=== PATIENT | male | born 1970 | race Caucasian/White ===

== ENCOUNTER → 2018-01-10 | Outpatient (CLI) | payer BC ==
--- NOTE | 2018-01-10 18:29 | CONS ---
CONSULTATION DATE OF SERVICE: 01/10/2018 47-year-old gentleman has been [facility] for obstructive sleep apnea- hypopnea syndrome. The patient is known to our office for many years for obstructive sleep apnea. Last CPAP titration done in 2011. The patient is on treatment with CPAP with a pressure at 8 cm of water. SLEEP SCHEDULE: His usual sleep schedule from around 9 to 10 pm until 3:00 a.m. basically around 7 days a wake and he sleeps pretty well with the machine with very occasional snoring. The patient may wake up from sleep once without nocturia. At the same time he sometimes feels sleepy during the day. [place] Sleepiness Scale significantly increased to 14. He increased his weight since the last titration from 260 pounds up to 269 pounds at the present time. PAST MEDICAL HISTORY: 1. Positive for hypertension. 2. Right shoulder pain. PAST SURGICAL HISTORY: Right knee arthroscopic surgery, UPPP, tonsillectomy and surgery for nasal septum deviation 2010. MEDICATIONS: Lisinopril, naproxen. SOCIAL HISTORY: Negative for smoking. Alcohol consumption occasional. FAMILY HISTORY: Heart problems in the family. REVIEW OF SYSTEMS: Occasional awakenings from sleep, sleepiness during the day. PHYSICAL EXAM: gentleman without distress. BP 127/69, HR 87, RR 16, height 5 feet 10 inches and 1/4, weight 269.4, BMI 38.3, temperature 98, oxygen saturation on room air 96%. Oropharynx: Moderately low position of soft palate. No uvula. ABDOMEN: Obese. HEENT PERRLA, EOMI. Neck Supple, no JVD. Thyroid is not palpable. LUNGS Clear to percussion and to auscultation. Good air exchange. No wheezing or rhonchi. HEART S1, S2 regular. No murmurs, gallops, or rubs. ABDOMEN Soft and nontender. Bowel sounds are present. No organomegaly appreciated. EXTREMITIES No clubbing or cyanosis. 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 Cranial nerves 2 to 7 intact. There is no fasciculation or atrophy noted. No focal deficits observed. I checked patient's CPAP unit. CPAP pressure is 8 cm of water. Usage is 25/30 nights for more than 4 hours. No information about apnea-hypopnea index on the machine. CPAP unit is old with some problem with a heated humidifier. IMPRESSION: 1. Obstructive sleep apnea-hypopnea syndrome for many years. Patient continued to use his CPAP equipment practically every night. Occasional mild snoring with the machine. 2. Obesity BMI 38.33. 3. Hypertension. 4. Right shoulder problems. 5. Status post right knee arthroscopic surgery. 6. Status post Uvulopalatopharyngoplasty with tonsillectomy and surgery for nasal septum deviation in 2010. PLAN: 1. We will replace CPAP unit to the new one with automatic regimen of the pressure 6- 12. 2. I will see patient for followup visit in 1 month after he will get his new machine to evaluate his clinical response to treatment compliance with treatment and make any necessary adjustments. 3. Losing weight. 4. Prescription for all necessary CPAP supplies. 5. No driving if feeling any sleepiness. Thank you very much for allowing me to participate in management of your patient. Sincerely, Lico Ly MD, PhD, FAASM Diplomat of [employer] Loan Specialist of [facility] [place] MMODL / LULUN: [id number] /
== END | disposition home or self-care (01) ==
LOC: SLEEP 14:54
PROVIDERS: ATTEND Internal Medicine
DX: G47.33 Obstructive sleep apnea (adult) (pediatric) (principal); E66.9 Obesity, unspecified; M79.9 Soft tissue disorder, unspecified; I10 Essential (primary) hypertension; Z98.890 Other specified postprocedural states; Z68.38 Body mass index [BMI] 38.0-38.9, adult; Z99.89 Dependence on other enabling machines and devices

== ENCOUNTER → 2018-04-04 | Outpatient (CLI) | payer BC ==
--- NOTE | 2018-04-04 17:13 | PN ---
PROGRESS NOTE DATE OF SERVICE: 04/04/2018 48-year-old gentleman who has been followed in [facility] for treatment of obstructive sleep apnea-hypopnea syndrome. Recently patient's CPAP unit had been replaced with a new one, and today this is first visit after he received his new unit. He is able to use equipment every night for the whole night. He likes new machine. He thinks that it works much better than the previous machine. He sleeps well with that and feels well during the day. [place] Sleepiness Scale today is 10. I checked CPAP unit pressure in the range 5 to 12. Average pressure 8.7 cm of water. Apnea-hypopnea index reading only 0.9, which is absolutely perfect. Usage is 100% of the time more than 4 hours. Average usage 4.9 hours. Leak is 11 L/minute which is normal. MEDICATIONS: Lisinopril, naproxen. PHYSICAL EXAM: Patient in no distress. BP 149/79, HR 80, RR 16, weight 263.4, temp 97.8, oxygen saturation on room air 97%. Oropharynx moderately low position of soft palate. No uvula. ABDOMEN: Obese. Neck Supple, no JVD. Thyroid is not palpable. LUNGS Clear to percussion and to auscultation. Good air exchange. No wheezing or rhonchi. HEART S1, S2 regular. No murmurs, gallops, or rubs. ABDOMEN: Obese. Soft and nontender. Bowel sounds are present. No organomegaly appreciated. EXTREMITIES No clubbing or cyanosis. 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 Cranial nerves 2 to 7 intact. There is no fasciculation or atrophy. noted. No focal deficits observed. IMPRESSION: 1. Obstructive sleep apnea-hypopnea syndrome. The patient demonstrated 100% compliance with treatment benefitting with treatment. 2. Obesity. 3. Hypertension. 4. History of right shoulder problems. 5. Status post right knee arthroscopic surgery. 6. Status post Uvulopalatopharyngoplasty with tonsillectomy and surgery for nasal septum deviation 2010. PLAN: 1. Patient will continue to use CPAP equipment every night for the whole night. 2. Losing weight. 3. Sleep hygiene with regular time in bed for at least 8 hours. 4. No driving if feeling sleepiness. 5. We will follow with prescription for all necessary CPAP supplies including mask, tube, filters. 6. I discussed with the patient necessity to dry humidifier and tube in the morning after using it at night. 7. Followup visit in 10 months or earlier if patient has any problems. Thank you very much for allowing me to participate in the management of your patient. Sincerely, Lico Ly MD, PhD, FAASM Diplomat of [employer] Electromedical Equipment Repairer of [facility] [place] MMODL / LULUN: [id number] /
== END | disposition home or self-care (01) ==
LOC: SLEEP 14:03
PROVIDERS: ATTEND Internal Medicine
DX: G47.33 Obstructive sleep apnea (adult) (pediatric) (principal); E66.9 Obesity, unspecified; I10 Essential (primary) hypertension; Z98.890 Other specified postprocedural states; Z90.89 Acquired absence of other organs; Z79.899 Other long term (current) drug therapy; Z99.89 Dependence on other enabling machines and devices

== ENCOUNTER → 2018-12-13 | Outpatient (CLI) | payer BC ==
[2018-12-13 14:50] LABS: HCT 49.9 % (39.0-53.0); HGB 16.9 gm/dL (13.0-17.5); MCH 30.4 pg (25.0-35.0); MCHC 33.8 g/dL (31.0-37.0); MCV 89.9 fL (80.0-100.0); Mean Platelet Volume 6.9; Platelet Count 195 k/uL (150-450); RBC 5.54 m/uL (4.30-5.90); RDW 12.9 % (11.5-15.5); WBC 7.9 k/uL (3.8-10.6)
[2018-12-13 15:02] LABS: ALT 44 U/L (21-72); AST 27 U/L (17-59); Albumin 3.8 g/dL (3.5-5.0); Alkaline Phosphatase 130 U/L (38-126); Anion Gap 5 mmol/L; Blood Urea Nitrogen 21 mg/dL (9-20); Calcium 9.2 mg/dL (8.4-10.2); Carbon Dioxide 31 mmol/L (22-30); Chloride 104 mmol/L (98-107); Glucose 99 mg/dL (74-99); Potassium 4.2 mmol/L (3.5-5.1); Sodium 140 mmol/L (137-145); Total Bilirubin 0.4 mg/dL (0.2-1.3)
[2018-12-13 15:11] LABS: INR 0.9 (<1.2); Partial Thromboplastin Time 23.8 sec (22.0-30.0); Prothrombin Time 9.6 sec (9.0-12.0)
== END | disposition home or self-care (01) ==
LOC: LABPAT 13:45
PROVIDERS: ATTEND Orthopaedic Surgery
DX: Z01.812 Encounter for preprocedural laboratory examination (principal)
CPT/HCPCS: 80053; 85027; 85610; 85730

== ENCOUNTER 2018-12-31 09:15 | Inpatient (IN) | payer BC ==
[2018-12-25 11:40] VITALS: BMI 36.6
[~2018-12-31 09:15] MED LIST: ACETAMINOPHEN TAB 500 MG TAB PO ONE; DEXAMETHASONE SOD PHOSPHATE 10 MG/ML 1 ML VIAL IV ONE; HYDROmorphone 0.5 MG/0.5 ML SYRINGE IVP PRN; LIDOCAINE 1% 20 ML VIAL (10MG/ML) FOR IV START INTRADERMA PRN; MELOXICAM 7.5 MG TAB PO ONE; MIDAZOLAM 2 MG/2 ML VIAL IV PRN; ONDANSETRON 4 MG/2 ML VIAL IVP ONE; ROPIVACAINE 246.25 MG, EPINEPHrine 0.5 MG, KETOROLAC 30 MG, WATER FOR INJECTION,STERILE... MISCELLANE ONE; SCOPOLAMINE 1.5MG/72HR PATCH TRANSDERM ONE; TRANEXAMIC ACID 1,000 MG in SODIUM CHLORIDE 0.9% 100 ML IVPB ONE; ceFAZolin IN SWFI 2 GM/20 ML SYRINGE IVP ONE
[2018-12-31] MEDS: LACTATED RINGERS 1,000 ML IV SCH (13:43)
[2018-12-31] MEDS ORDERED: MIDAZOLAM (PF) 2 MG/2 ML VIAL IV ONE (13:49)
[2018-12-31] MEDS ORDERED: BISACODYL 10 MG SUPP RECTAL PRN (14:43)
[2018-12-31] MEDS ORDERED: NA PHOS,M-B/NA PHOS,DI-BA 133 ML ENEMA RECTAL PRN (14:43)
[2018-12-31] MEDS ORDERED: HYDROcodone/APAP 5-325MG 1 EACH TAB PO PRN ×2 (14:43)
[2018-12-31] MEDS ORDERED: HYDROmorphone 1 MG/ML 1 ML SYRINGE IVP PRN (14:43)
[2018-12-31] MEDS ORDERED: ONDANSETRON 4 MG/2 ML VIAL IVP PRN (14:43)
[2018-12-31] MEDS ORDERED: ROPIVACAINE 1,100 MG, SODIUM CHLORIDE 0.9% 500 ML 330 ML MISCELLANE PRN ×2 (14:43)
[2018-12-31] MEDS ORDERED: MAGNESIUM HYDROXIDE 2,400 MG/10 ML CUP PO PRN (14:43)
[2018-12-31] MEDS ORDERED: HYDROmorphone 0.5 MG/0.5 ML SYRINGE IVP PRN ×2 (14:43)
[2018-12-31] MEDS ORDERED: NALOXONE 0.4 MG/ML 1 ML VIAL IV PRN (14:43)
[2018-12-31] MEDS ORDERED: hydrOXYzine PAMOATE 25 MG CAP PO PRN (14:43)
--- NOTE | 2018-12-31 14:46 | P.ONQ ---
Anesthesiology Proc Note - PNB - Peripheral Nerve Block Performed Right Adductor Canal Infusion Time Out Performed: Yes Procedure Start Time: 13:51 Procedure Stop Time: 13:59 Indication: Acute Post-Operative Pain, Requested by physician Sedation Type: Sedate with meaningful contact maintained Preparation: Sterile Dressing Position: Supine Catheter: Indwelling Needle Types: On-Q Needle Size: 100mm (4") Needle Gauge: 21 Technique: Ultrasound (ropi .5% 20cc) Blood Aspirated: No Pain Paresthesia on Injection Noted: No Resistance on Injection: Normal Events: Uneventful and Well Tolerated
[2018-12-31] MEDS ORDERED: MIDAZOLAM 2 MG/2 ML VIAL ONE (15:07)
[2018-12-31] MEDS ORDERED: TRANEXAMIC ACID 1,000 MG/10 ML VIAL ONE (15:07)
[2018-12-31] MEDS ORDERED: SODIUM CHLORIDE 0.9% 100 ML BAG ONE (15:07)
[2018-12-31] MEDS ORDERED: fentaNYL (PF) 50 MCG/ML 2 ML AMP ONE (15:07)
[2018-12-31] MEDS ORDERED: ceFAZolin 3,000 MG in SODIUM CHLORIDE 0.9% IRRIGATIO 3,000 ML IRRIGATION ONE (15:09)
[2018-12-31] MEDS ORDERED: LACTATED RINGERS 1,000 ML IV ONE (16:00)
--- NOTE | 2018-12-31 16:49 | P.OP ---
Date of Procedure: 12/31/18 Preoperative Diagnosis: Severe osteoarthritis right knee Postoperative Diagnosis: Severe osteoarthritis right knee Procedure(s) Performed: Right total knee arthroplasty Implants: Singh and Nephew Journey II CR Oxinium cruciate retaining femoral component size 8, right Singh & Nephew Journey right nonporous tibial baseplate size 7 Singh & Nephew Journey II, XLPE Deep Dished articular insert, size 10 mm, Size 7-8 right Singh & Nephew Journey BCS resurfacing oval patellar component, 32 mm All components were cemented using Palacos R bone cement.. The articulation is Oxinium on polyethylene. Anesthesia: spinal Surgeon: Guero Kennedy Plate Inspector #1: Sanjuana Flores Estimated Blood Loss (ml): 50 Pathology: other (Bone and cartilage) Condition: stable Disposition: PACU Indications for Procedure: After failure of conservative treatment we discussed the surgical and nonsurgical treatment options at length. Patient wishes to proceed with a total knee arthroplasty. Complications specific to this procedure were discussed at length, including but not limited to infection, bleeding, stiffness, and nerve injury. Patient is aware of all these complications and informed consent was obtained Operative Findings: The operative findings are consistent with severe osteoarthritis of the right knee Description of Procedure: Patient was seen in the preoperative area consent was reviewed and operative site was marked with a skin marker. An adductor canal pain catheter was placed by anesthesia in the preoperative area. Patient was then brought to the opera ting room and given preoperative antibiotics intravenously. A spinal anesthetic was administered by the anesthesia department. A tourniquet was placed on the upper thigh and the lower extremity was prepped and draped in usual sterile fashion. A gram of transexamic acid was given. A universal timeout was then performed which confirmed the patient's name, surgical site, ALLERGIES, and consent. The lower extremity was then exsanguinated and tourniquet was inflated to 250 mmHg. A standard and anterior midline approach to the knee was performed. The skin and subcutaneous tissue was dissected down to the patellar tendon. A medial parapatellar arthrotomy was then performed. The knee was then extended, the patellar was everted, and the knee was again flexed. Anterior horns of both menisci were excised, and a release was performed to the posterior medial aspect of the knee. On gross visual inspection, there was complete loss of articular cartilage in the medial and patellofemoral joint spaces. There was also significant cartilage damage in the lateral compartment. There were multiple periarticular osteophytes which were then removed with a Ronguer. The femoral canal was then opened with the appropriate drill, and the intramedullary femoral cutting guide was then placed and set for 5 of valgus. The distal femoral cutting block was then pinned in place, and the distal femur was then cut. The cutting block was then removed and the cut was checked for flatness. Next, the sizing guide was then placed and set for 3 external rotation based off of the epicondylar axis and Whitesides line. After the femur was sized, the appropriate 4-in-1 cutting block was then pinned in place. The anterior condyles were cut without notching. The posterior and chamfer cuts were perfo rmed while protecting the collateral ligaments. The cutting block was then removed, and the femoral canal was plugged with autologous bone. Attention was then directed to the tibia. The remaining ACL was removed with a Ronguer, and the tibia was then gently subluxed forward with a large bent knee retractor. Any remaining menisci was excised. The posterior lateral corner was cauterized in order to cauterize the lateral geniculate artery. The extra medullary tibial cutting guide was then placed, set for the appropriate rotation, slope, and depth of resection. The proximal tibia cutting guide was then pinned in place. Proximal tibia was then cut and sized. Next trials were then placed with the appropriate-sized insert. The knee was able to fully extend and flex to 130 and was stable throughout all range of motion. The knee was then extended, patella everted. Patella was then measured, and then using an osteotomy guide, the patella was cut at the appropriate level. The patella was then measured and drilled and the patella trial was then placed. The knee was then taken through range of motion with the patella trial and the patella tracked normally. The knee was then extended patella trial was then removed and the patella was everted. Knee was then flexed and lug holes were drilled through the femoral trial and the femoral trial was then removed. The tibial was then exposed, and the tibial broach guide was then pinned in place after it was set for the appropriate rotation to allow for the most coverage without overhang. The tibia was then reamed and broached. The cut surfaces of bone were then irrigated with pulsatile lavage. The posterior structures were injected with the ropivacaine solution. The knee was also irrigated with Irrisept solution. The components were then opened, the cement was mixed, and the components were then cemented in place. The cement was allowed to harden with the knee in full extension. While the cement was hardening, the remaining soft tissues were then injected with a ropivacaine solution, which consisted of 246.25 mg of ropivacaine, 0.5 mg of epinephrine, 30 mg of Toradol, 80 g of clonidine, and 48.45 mL of sterile water, for a total of 100 mL of fluid injected. After the cemented hardened. The tourniquet was released, and hemostasis was obtained. A second gram of transexamic acid was given. The knee was again irrigated. The knee was again taken through range of motion and found to be stable throughout all range of motion of 0-130, and the patella tracked normally. The fascia was then closed with #2 strata fix suture. The subcutaneous tissue was closed with 3-0 Vicryl and 3-0 strata fix. Dermabond glue was used for the skin and placed with the knee in flexion. The patient was placed in a sterile silver dressing. Patient was then transferred to recovery room in stable condition. The assistant golf course superintendent GLADYS Maharaj was required due the complexity surgery and the need for a skilled surgical scheduler. She assisted in positioning, draping, retraction, and closure of the wound.
--- NOTE | 2018-12-31 17:48 | XR ---
EXAMINATION TYPE: XR knee limited RT DATE OF EXAM: 12/31/2018 COMPARISON: NONE HISTORY: Postop knee surgery TECHNIQUE: 2 views FINDINGS: There is right knee prosthesis. Components are in anatomic position. IMPRESSION: No complicating process seen.
[2018-12-31] MEDS: SODIUM CHLORIDE 0.9% 1,000 ML IV SCH (18:21)
--- NOTE | 2018-12-31 19:50 | P.CONS ---
History of Present Illness - Reason for Consult Consult date: 12/31/18 Medical management Requesting physician: Guero Kennedy - Chief Complaint Post right total knee arthroplasty, hypertension, hyperlipidemia, obstructi - History of Present Illness 48-year-old male morbidly obese with past medical history of hypertension hyperlipidemia and obstructive sleep apnea who seen Dr. Boogie for the last few years had injury on his right knee from football back in school years ago developed to have severe arthritis of both knees worse on the right than the left side was doing Synvix injection for the last few years his arthritis become much worse was seen Dr. Kennedy and decided on total knee arthroplasty. Surgery was done today successfully patient was admitted to the floor afterward his hemodynamically stable and doing well. Review of Systems CONSTITUTIONAL: Well-developed no acute respiratory distress. Morbidly obese EYES: No icterus sclerae, no conjunctivitis. EARS, NOSE, MOUTH, THROAT, and FACE: No sore throat, lymphadenopathy, carotid bruits or deformity. RESPIRATORY: No SOB cough or wheezes. CARDIOVASCULAR: No CP, Palpitation, PND, Orthopnea, or angina. GASTROINTESTINAL: No Abd pain, Nausea or vomiting, no Diarrhea or constipation, No GI Bleed, no distention or masses. GENITOURINARY: Negative for Hematuria or UTI, no kidney stones. INTEGUMENT/BREAST: Negative for any muscular injury with mild osteoarthritis.. HEMATOLOGIC/LYMPHATIC: Negative for bleed or purpura. MUSCULOSKELTAL: Negative for Myalgia or arthralgia. Incision on the right knee with no hematoma. NEURLOGICAL: No LOC, Sz or syncope, blurred vision dizziness or abnormality.. BEHAVIORAL/PSYCH: Negative. ENDOCRINE: Negative. Past Medical History Past Medical History: Hyperlipidemia, Hypertension, Osteoarthritis (OA), Sleep Apnea/CPAP/BIPAP Additional Past Medical History / Comment(s): C PAP , VARICOSE VEINS History of Any Multi-Drug Resistant Organisms: None Reported Past Surgical History: Adenoidectomy, Tonsillectomy Additional Past Surgical History / Comment(s): LASIK BILATERAL EYES, VARICOSE VEIN SURGERY, Past Anesthesia/Blood Transfusion Reactions: Motion Sickness Smoking Status: Never smoker - Past Family History Mother Family Medical History: No Reported History Medications and Allergies Home Medications Medication Instructions Recorded Confirmed Type Acetaminophen Tab [Tylenol Tab] 650 mg PO Q4H PRN 12/25/18 12/31/18 History Lisinopril 20 mg PO HS@1800 12/25/18 12/31/18 History Fenofibrate Nanocrystallized 145 mg PO HS 12/30/18 12/31/18 History [Fenofibrate] Allergies Allergy/AdvReac Type Severity Reaction Status Date / Time No Known Allergies Allergy Verified 12/31/18 17:52 Physical Exam Vitals: Vital Signs Temp Pulse Pulse Resp BP BP Pulse Ox 12/31/18 19:44 97.6 F 86 17 122/79 97 12/31/18 18:39 97 12/31/18 18:30 90 126/80 12/31/18 18:15 88 119/74 12/31/18 18:00 97.8 F 82 12 115/71 96 12/31/18 17:35 80 16 123/65 92 L 12/31/18 17:20 84 18 120/63 91 L 12/31/18 17:05 98.1 F 86 20 127/64 95 12/31/18 14:03 81 16 132/86 96 12/31/18 13:22 97.6 F 88 16 155/83 96 Intake and Output 12/31/18 12/31/18 12/31/18 06:59 14:59 22:59 Intake Total 400 1001 Output Total 50 Balance 400 951 Intake: IV 400 1001 Output: Estimated Blood Loss 50 General Appearance: Alert, cooperative, no distress, appears stated age. Morbidly obese Neck HEENT: Supple, no lymphadenopathy, no thyroid enlargement, no carotid bruits. Lungs: Clear to auscultation without crackles or wheezes no rhonchi, no deformity. Chest Wall: Chest wall normal expansion with deep inspiration no tenderness and no deformity was found on exam, no costochondral pain or discomfort. Heart: Regular rate and rhythm, S1, S2 normal, no murmur, rub or gallop. Back: Symmetric, no curvature, ROM normal, no CVA tenderness. Abdomen: Soft, non-tender, bowel sounds active all four quadrants, no masses, no organomegaly. Extremities: Extremities normal, atraumatic, no cyanosis or edema. Right knee incision looks fine with no hematoma or bleeding slight swelling. Pulses: 2+ and symmetric. Skin: Skin color, texture, tugor normal, no rashes or lesions. Neurologic: Alert oriented x3 cranial nerves II through XII intact, no motor deficit, no abnormal balance or gait. Assessment and Plan Plan: 1 post right total knee arthroplasty: Successful surgery patient is doing very well continue current pain management, continue to watch patient hemodynamic status overnight. Resume home meds, GI, DVT, pulmonary prophylaxis protocol. 2 hypertension: Continue patient on lisinopril 20 mg a day doing very well with it so far. 3 hyperlipidemia: Has been on fenofibrate 145 mg daily. 4 obstructive sleep apnea: Patient has been using CPAP. 5 GI prophylaxis: Patient be on Pepcid 20 mg daily. 6 anticoagulation: Patient will be on aspirin 325 g twice a day per 3 protocol. CODE STATUS: Full code. Dr. Kennedy thank you much for the consult if I can be any further help to please let me know.
[2018-12-31] MEDS ORDERED: SENNOSIDES-DOCUSATE SODIUM 1 EACH TAB PO SCH (21:00)
[2018-12-31] MEDS ORDERED: FENOFIBRATE 160 MG TAB PO SCH (21:00)
[2018-12-31] MEDS: ASPIRIN 325 MG TAB PO SCH (21:51)
[2018-12-31] MEDS: DIAZEPAM 5 MG TAB PO PRN (21:51)
[2018-12-31] MEDS: ceFAZolin IN SWFI 2 GM/20 ML SYRINGE IVP SCH (23:20)
[2019-01-01 02:01] VITALS: RESP 16
--- NOTE | 2019-01-01 05:47 | P.PN ---
Progress Note - Text Progress Note Date: 01/01/19 POD 1 From TKR. Doing well, onQ pump in place, site clean and dry. No erythema. Pain controlled. No weakness noted. Normal sensation and strength. Little sore posteriorly but able to ambulate. patient to be d/c home today. Instructions given to them regarding removal.
[2019-01-01] MEDS: SODIUM CHLORIDE 0.9% 1,000 ML IV SCH (06:24)
[2019-01-01] MEDS: LACTATED RINGERS 1,000 ML IV SCH (06:24)
[2019-01-01 07:35] VITALS: BP 120/72; TEMP 99
--- NOTE | 2019-01-01 08:59 | P.DS ---
Providers Date of admission: 12/31/18 12:50 Expected date of discharge: 01/01/19 Attending physician: Guero Kennedy Consults: 12/31/18 14:43 Consult Physician Routine Consulting Provider: Roe Easton Reason/Comments: medical management Do you want consulting provider notified?: Yes Primary care physician: Patricia Abebe - Discharge Diagnosis(es) (1) Osteoarthritis of right knee Current Visit: Yes Status: Acute (2) Status post total right knee replacement Current Visit: Yes Status: Acute Hospital Course: This is a 48-year-old male with known history of degenerative arthritis of the right knee. The patient presents for evaluation. After discussion and consideration patient elects to proceed with total knee arthroplasty. The patient is seen preoperatively by Dr. Kennedy and medically cleared for surgery by their primary care physician. Patient is admitted to [facility] on 12/31/2018 for total knee arthroplasty. The procedures performed without complication or sequelae. The patient is doing well postoperatively. Labs and vital signs are stable on day of discharge. On day of discharge patient's knee incision is healing well. There is minimal erythema. There is no drainage noted at this time. There is minimal soft tissue swelling to the knee. Patient has full foot and ankle motion without difficulty or pain. Calf is soft and nontender to palpation. Neurovascular status to the right lower extremity is intact. Patient is discharged home in good condition. Opioid start talking form is reviewed and signed at patient bedside. Please see med rec for accurate list of home medications. Plan - Discharge Summary Discharge Rx Participant: No New Discharge Prescriptions: New Aspirin 325 mg PO BID #60 tab HYDROcodone/APAP 5-325MG [[place] 5-325] 1 - 2 tab PO Q6HR PRN #56 tab PRN Reason: Pain Sennosides [Senokot] 1 tab PO BID #60 tablet No Action Acetaminophen Tab [Tylenol Tab] 650 mg PO Q4H PRN PRN Reason: Pain Lisinopril 20 mg PO HS@1800 Fenofibrate Nanocrystallized [Fenofibrate] 145 mg PO HS Discharge Medication List Acetaminophen Tab [Tylenol Tab] 650 mg PO Q4H PRN 12/25/18 [History] Lisinopril 20 mg PO HS@1800 12/25/18 [History] Fenofibrate Nanocrystallized [Fenofibrate] 145 mg PO HS 12/30/18 [History] Aspirin 325 mg PO BID #60 tab 01/01/19 [Rx] HYDROcodone/APAP 5-325MG [[place] 5-325] 1 - 2 tab PO Q6HR PRN #56 tab 01/01/19 [Rx] Sennosides [Senokot] 1 tab PO BID #60 tablet 01/01/19 [Rx] Follow up Appointment(s)/Referral(s): Guero Kennedy DO [Doctor of Osteopathic Medicine] - 2 Weeks Activity/Diet/Wound Care/Special Instructions: Weightbearing as tolerated with a walker. CPM 5-6h daily. Leave dressing intact. May be removed by home care nurse or by patient in 10 days. May shower with dressing on. Please follow up with [facility] and call with any questions or concerns, . Discharge Disposition: HOME WITH HOME HEALTH SERVICES
[2019-01-01] MEDS ORDERED: FAMOTIDINE 20 MG TAB PO SCH (09:00)
[2019-01-01] MEDS ORDERED: MELOXICAM 7.5 MG TAB PO SCH (09:00)
[2019-01-01] MEDS: ASPIRIN 325 MG TAB PO SCH (09:33)
[2019-01-01] MEDS: DIAZEPAM 5 MG TAB PO PRN (09:33)
[2019-01-01 09:50] LABS: Basophils % (A) 0 %; Eosinophils # (A) 0.1 k/uL (0-0.7); Eosinophils % (A) 1 %; HCT 45.1 % (39.0-53.0); HGB 14.5 gm/dL (13.0-17.5); Lymphocytes # (A) 1.2 k/uL (1.0-4.8); Lymphocytes % (A) 8 %; MCH 29.2 pg (25.0-35.0); MCHC 32.2 g/dL (31.0-37.0); MCV 90.7 fL (80.0-100.0); Mean Platelet Volume 8.1; Monocytes # (A) 0.7 k/uL (0-1.0); Monocytes % (A) 5 %; Neutrophils # (A) 12.2 k/uL (1.3-7.7); Neutrophils % (A) 85 %; Platelet Count 195 k/uL (150-450); RBC 4.97 m/uL (4.30-5.90); RDW 13.2 % (11.5-15.5); WBC 14.3 k/uL (3.8-10.6)
[2019-01-01 10:09] VITALS: PULSE 76
[2019-01-01] MEDS: ceFAZolin IN SWFI 2 GM/20 ML SYRINGE IVP SCH (10:11)
[2019-01-01 10:46] LABS: Toxic Granulation Present
--- NOTE | 2019-01-01 15:29 | P.PN ---
Subjective Progress Note Date: 01/01/19 48-year-old male morbidly obese with past medical history of hypertension hyperlipidemia and obstructive sleep apnea who seen Dr. Boogie for the last few years had injury on his right knee from football back in school years ago developed to have severe arthritis of both knees worse on the right than the left side was doing Synvix injection for the last few years his arthritis become much worse was seen Dr. Kennedy and decided on total knee arthroplasty. Surgery was done today successfully patient was admitted to the floor afterward his hemodynamically stable and doing well. 01/01: Patient denies having any problems overnight. Her pain is currently controlled. She has been afebrile, heart rate 80, blood pressure 120/72, pulse ox 95% on room air. Patient to use CPAP during the night. She remains with Q pump in place. Plan is for discharge home today. Patient will follow-up with Dr. Abebe. Medication reconciliation has been reviewed. Review of Systems CONSTITUTIONAL: Well-developed no acute respiratory distress. Morbidly obese. Denies fever, denies chills. EYES: No icterus sclerae, no conjunctivitis. EARS, NOSE, MOUTH, THROAT, and FACE: No sore throat, lymphadenopathy, carotid bruits or deformity. RESPIRATORY: No SOB cough or wheezes. CARDIOVASCULAR: No CP, Palpitation, PND, Orthopnea, or angina. GASTROINTESTINAL: No Abd pain, Nausea or vomiting, no Diarrhea or constipation, No GI Bleed, no distention or masses. GENITOURINARY: Negative for Hematuria or UTI, no kidney stones. INTEGUMENT/BREAST: Negative for any muscular injury with mild osteoarthritis.. HEMATOLOGIC/LYMPHATIC: Negative for bleed or purpura. MUSCULOSKELTAL: Negative for Myalgia or arthralgia. Incision on the right knee with no hematoma. NEURLOGICAL: No LOC, Sz or syncope, blurred vision dizziness or abnormality.. BEHAVIORAL/PSYCH: Negative. ENDOCRINE: Negative. Objective - Vital Signs Vital signs: Vital Signs Temp 99.0 F 01/01/19 07:17 Pulse 76 01/01/19 08:00 Resp 16 01/01/19 08:00 BP 120/72 01/01/19 07:17 Pulse Ox 95 01/01/19 07:17 Intake & Output 12/31/18 01/01/19 01/01/19 18:59 06:59 18:59 Intake Total 1401 Output Total 50 Balance 1351 Intake: IV 1401 Output: Estimated Blood Loss 50 Other: Voiding Method Toilet Toilet # Voids 1 - Exam General Appearance: Alert, cooperative, no distress, appears stated age. Morbidly obese Neck HEENT: Supple, no lymphadenopathy, no thyroid enlargement, no carotid bruits. Lungs: Clear to auscultation without crackles or wheezes no rhonchi, no deformity. Chest Wall: Chest wall normal expansion with deep inspiration no tenderness and no deformity was found on exam, no costochondral pain or discomfort. Heart: Regular rate and rhythm, S1, S2 normal, no murmur, rub or gallop. Back: Symmetric, no curvature, ROM normal, no CVA tenderness. Abdomen: Soft, non-tender, bowel sounds active all four quadrants, no masses, no organomegaly. Extremities: Extremities normal, atraumatic, no cyanosis or edema. Right knee has small dressing in place, Q pump. Pulses: 2+ and symmetric. Skin: Skin color, texture, tugor normal, no rashes or lesions. Neurologic: Alert oriented x3 cranial nerves II through XII intact, no motor deficit, no abnormal balance or gait. - Labs CBC & Chem 7: 01/01/19 06:57 Labs: Abnormal Lab Results - Last 24 Hours (Table) 01/01/19 Range/Units 06:57 WBC 14.3 H (3.8-10.6) k/uL Neutrophils # 12.2 H (1.3-7.7) k/uL Assessment and Plan Plan: 1 post right total knee arthroplasty: Successful surgery patient is doing very well continue current pain management, continue to watch patient hemodynamic status overnight. Resume home meds, GI, DVT, pulmonary prophylaxis protocol. 2 hypertension: Continue patient on lisinopril 20 mg a day doing very well with it so far. 3 hyperlipidemia: Has been on fenofibrate 145 mg daily. 4 obstructive sleep apnea: Patient has been using CPAP. 5 GI prophylaxis: Patient be on Pepcid 20 mg daily. 6 anticoagulation: Patient will be on aspirin 325 g twice a day per 3 protocol. CODE STATUS: Full code. Discharge plan: Home with home care Impression and plan of care have been directed as dictated by the signing physician. Mary Hatfield nurse practitioner acting as scribe for signing physician.
[2019-01-01] MEDS ORDERED: LISINOPRIL 20 MG TAB PO SCH (18:00)
== END 2019-01-01 12:48 | disposition home or self-care (01) | DRG 470 ==
LOC: 2ORMAIN 12:50 → 4SSUR 17:05
PROVIDERS: ADMIT Orthopaedic Surgery; ATTEND Orthopaedic Surgery
PROC: 0SRC069 Replacement of Right Knee Joint with Oxidized Zirconium on Polyethylene Synthetic Substitute, Cemented, Open Approach (ICD-10-PCS; principal; 2018-12-31 14:50)
PROC: 3E0T3BZ Introduction of Anesthetic Agent into Peripheral Nerves and Plexi, Percutaneous Approach (ICD-10-PCS; principal; 2018-12-31 14:50)
DX: M17.11 Unilateral primary osteoarthritis, right knee (principal); E78.5 Hyperlipidemia, unspecified; G47.33 Obstructive sleep apnea (adult) (pediatric); I10 Essential (primary) hypertension; M16.11 Unilateral primary osteoarthritis, right hip; E66.01 Morbid (severe) obesity due to excess calories; Z82.49 Family history of ischemic heart disease and other diseases of the circulatory system; Z68.36 Body mass index [BMI] 36.0-36.9, adult; Z99.89 Dependence on other enabling machines and devices; Z90.89 Acquired absence of other organs
CPT/HCPCS: 85025; 88300